=== PATIENT | female | born 1980 | race Caucasian/White ===

== ENCOUNTER → 2017-08-12 | Outpatient (CLI) | payer MEDICAID ==
[~2017-08-12] MED LIST: BUSPAR5 MG PO; CLEANSE PO; DEPO-PROVER150 MG/M1 IM; DETOX PO; FLAGYL500 MG PO; MED FOR DEPRESSION; NO HOME MEDICATIONS; NORCO 325 MG-51 TAB PO; PEN-VEE K500 MG PO; PENICILLIN V250 MG PO; PEPCID 20MG TAB20 MG PO; PERCOCET 5/321 UDTAB PO; PERCOCET 500 MG1 TAB PO; REMERON30 MG PO; ZITHROMAX 250M250 MG PO; [UNRECOGNIZED DRUG - OTHER] PO; iron supplement
== END ==
LOC: MC.RAD 14:00
DX: S29.9XXA Unspecified injury of thorax, initial encounter (principal); S20.02XA Contusion of left breast, initial encounter; N64.89 Other specified disorders of breast

== ENCOUNTER 2017-12-02 12:33 | Emergency (ER) | payer MEDICAID ==
[~2017-12-02] VITALS: Ht 157.5 cm; Wt 79.5 kg
[2017-12-02 12:36] VITALS: BP 144/93; PULSE 110; TEMP 98.2
[2017-12-04] MEDS ORDERED: SEPTRA DS 8001 TAB PO (04:51)
[2017-12-04] MEDS ORDERED: CEPHALEXIN500 M1 PO (04:51)
== END 2017-12-02 12:58 | disposition left against medical advice (07) ==
LOC: COL.ER 12:33
DX: S61.411A Laceration without foreign body of right hand, initial encounter (principal); X58.XXXA Exposure to other specified factors, initial encounter

== ENCOUNTER 2018-07-15 13:54 | Emergency (ER) | payer MEDICAID ==
[~2018-07-15] VITALS: Ht 157.5 cm; Wt 95.3 kg
[~2018-07-15 13:54] MED LIST changes: +CEPHALEXIN500 M1 PO; +SEPTRA DS 8001 TAB PO
[2018-07-15 14:02] VITALS: TEMP 98.3
[2018-07-15 14:41] LABS: BASO % 0.2 % (0.0-2.0); EOS # 0.1 (0.0-0.7); EOS % 0.5 % (0-4.0); GRAN # 8.7 (1.4-6.5); GRAN % 84.5 % (42.2-75.2); HEMOGLOBIN 11.4 g/dl (12.5-16.0); LYMPH # 0.9 (1.2-3.4); LYMPH % 8.5 % (20.0-51.0); MEAN CELL VOLUME 96 fl (80.0-100.0); MEAN CORPUSCULAR HEMOGLOBIN 32 pg (27.0-31.0); MEAN CORPUSCULAR HGB CONC 33 g/dl (33.0-37.0); MEAN PLATELET VOLUME 9.6 fl (7.4-10.4); MONO # 0.6 (0.1-0.6); MONO % 5.7 % (1.7-9.3); PLATELET COUNT 287 K/mm3 (130-400); RED BLOOD COUNT 3.57 M/mm3 (4.10-5.30); REDCELL DISTRIBUTION WIDTH-CV 13.5 % (11.5-14.5)
[2018-07-15 14:42] LABS: HEMATOCRIT 34.3 % (37.0-47.0)
[2018-07-15 14:47] LABS: BILIRUBIN,TOTAL 0.3 mg/dL (0.0-1.0); CREATININE, serum 0.47 mg/dL (0.52-1.25); POTASSIUM 3.7 mmol/L (3.4-5.0)
[2018-07-15 16:10] LABS: COLLECTION METHOD CLEAN CATCH
[2018-07-15 16:29] LABS: MUCOUS Present /lpf; PH 5 (5-8); URINE APPEARANCE Hazy; URINE BACTERIA Rare /hpf; URINE BILIRUBIN Negative (NEGATIVE); URINE BLOOD Negative (NEGATIVE); URINE COLOR Yellow; URINE GLUCOSE Negative (NEGATIVE); URINE KETONE 2+ (NEGATIVE); URINE LEUKOCYTE ESTERASE Negative (NEGATIVE); URINE NITRATE Negative (NEGATIVE); URINE PROTEIN(semi-quant) 2+ (NEGATIVE); URINE RBC 0-2 /hpf; URINE UROBILINOGEN Negative (NEGATIVE)
[2018-07-15 17:05] VITALS: BP 132/85; PULSE 84
== END 2018-07-15 17:06 | disposition home or self-care (01) ==
LOC: COL.ER 13:54
PROVIDERS: Emergency Medicine
DX: O21.9 Vomiting of pregnancy, unspecified (principal); O99.89 Other specified diseases and conditions complicating pregnancy, childbirth and the puerperium; R19.7 Diarrhea, unspecified; Z3A.38 38 weeks gestation of pregnancy
CPT/HCPCS: J2405; J2765; J7030

== ENCOUNTER 2018-08-13 12:16 | Outpatient (CLI) | payer MEDICAID ==
[2018-08-13] VITALS (8 sets, daily range): BP systolic 143–190; BP diastolic 70–102; PULSE 82–99; TEMP 98.5
[~2018-08-13] VITALS: Ht 157.5 cm; Wt 106.4 kg
[2018-08-13] MEDS ORDERED: PRENATAL MVI (12:36)
[2018-08-13 13:16] LABS: BASO % 0.2 % (0.0-2.0); EOS # 0.2 (0.0-0.7); EOS % 1.6 % (0-4.0); GRAN # 6.9 (1.4-6.5); GRAN % 73.2 % (42.2-75.2); LYMPH # 1.5 (1.2-3.4); LYMPH % 15.8 % (20.0-51.0); MEAN CELL VOLUME 94 fl (80.0-100.0); MEAN CORPUSCULAR HGB CONC 34 g/dl (33.0-37.0); MEAN PLATELET VOLUME 9.9 fl (7.4-10.4); MONO # 0.8 (0.1-0.6); MONO % 8.7 % (1.7-9.3); PLATELET COUNT 285 K/mm3 (130-400); RED BLOOD COUNT 2.92 M/mm3 (4.10-5.30); REDCELL DISTRIBUTION WIDTH-CV 13.8 % (11.5-14.5)
[2018-08-13 13:18] LABS: HEMATOCRIT 27.4 % (37.0-47.0); HEMOGLOBIN 9.2 g/dl (12.5-16.0); MEAN CORPUSCULAR HEMOGLOBIN 32 pg (27.0-31.0)
[2018-08-13 13:24] LABS: ALBUMIN 2.6 gm/dL (3.5-5.0); BILIRUBIN,TOTAL 0.1 mg/dL (0.0-1.0); CALCIUM 7.6 mg/dL (8.4-10.2); CREATININE, serum 0.5 mg/dL (0.52-1.25); POTASSIUM 3.8 mmol/L (3.4-5.0); TOTAL PROTEIN 5.3 gm/dL (6.4-8.2)
[2018-08-13 13:28] LABS: COLLECTION METHOD CLEAN CATCH
[2018-08-13 13:42] LABS: MUCOUS Present /lpf; PH 5 (5-8); SQUAMOUS EPITHELIAL 20-50 /hpf; URINE APPEARANCE Cloudy; URINE BACTERIA Rare /hpf; URINE BILIRUBIN Negative (NEGATIVE); URINE BLOOD Negative (NEGATIVE); URINE COLOR Yellow; URINE GLUCOSE Negative (NEGATIVE); URINE KETONE Negative (NEGATIVE); URINE LEUKOCYTE ESTERASE Negative (NEGATIVE); URINE NITRATE Negative (NEGATIVE); URINE PROTEIN(semi-quant) 1+ (NEGATIVE); URINE RBC 0-2 /hpf; URINE UROBILINOGEN Negative (NEGATIVE)
[2018-08-13 13:49] LABS: TRICYCLIC ANTIDEPRESS URINE NEGATIVE
== END 2018-08-13 16:35 | disposition home or self-care (01) ==
LOC: LDRO 12:16
PROVIDERS: Obstetrics & Gynecology
DX: O62.9 Abnormality of forces of labor, unspecified (principal); O99.89 Other specified diseases and conditions complicating pregnancy, childbirth and the puerperium; R03.0 Elevated blood-pressure reading, without diagnosis of hypertension; Z3A.36 36 weeks gestation of pregnancy

== ENCOUNTER 2018-08-16 07:25 | Inpatient (IN) | payer MEDICAID ==
[~2018-08-16] VITALS: Ht 160 cm; Wt 106.4 kg
[~2018-08-16 07:25] MED LIST changes: +PRENATAL MVI
[2018-08-17] VITALS (65 sets, daily range): BP systolic 114–192; BP diastolic 58–121; PULSE 71–98; TEMP 97.4–98.5
[2018-08-17] MEDS ORDERED: NORMODYNE200 MG PO (07:35)
[2018-08-17 07:46] LABS: BASO % 0.4 % (0.0-2.0); EOS # 0.2 (0.0-0.7); EOS % 3.2 % (0-4.0); GRAN # 4.7 (1.4-6.5); GRAN % 62.8 % (42.2-75.2); LYMPH # 1.7 (1.2-3.4); LYMPH % 21.9 % (20.0-51.0); MEAN CELL VOLUME 94 fl (80.0-100.0); MEAN CORPUSCULAR HGB CONC 32 g/dl (33.0-37.0); MEAN PLATELET VOLUME 10.1 fl (7.4-10.4); MONO # 0.9 (0.1-0.6); MONO % 11.3 % (1.7-9.3); PLATELET COUNT 281 K/mm3 (130-400); RED BLOOD COUNT 3.18 M/mm3 (4.10-5.30); REDCELL DISTRIBUTION WIDTH-CV 14.1 % (11.5-14.5)
[2018-08-17 07:52] LABS: HEMOGLOBIN 9.7 g/dl (12.5-16.0); MEAN CORPUSCULAR HEMOGLOBIN 31 pg (27.0-31.0)
[2018-08-17 07:55] LABS: TRICYCLIC ANTIDEPRESS URINE NEGATIVE
[2018-08-17 07:58] LABS: ALBUMIN 2.4 gm/dL (3.5-5.0); BILIRUBIN,TOTAL 0.2 mg/dL (0.0-1.0); CALCIUM 7.6 mg/dL (8.4-10.2); CREATININE, serum 0.49 mg/dL (0.52-1.25); POTASSIUM 3.5 mmol/L (3.4-5.0); TOTAL PROTEIN 5.1 gm/dL (6.4-8.2)
[2018-08-18] VITALS (35 sets, daily range): BP systolic 115–164; BP diastolic 55–97; PULSE 75–110; TEMP 97.5–98.3
[2018-08-18 08:07] LABS: BASO % 0.2 % (0.0-2.0); EOS % 0.1 % (0-4.0); GRAN # 16.6 (1.4-6.5); GRAN % 88.3 % (42.2-75.2); LYMPH # 0.8 (1.2-3.4); MEAN CELL VOLUME 94 fl (80.0-100.0); MEAN CORPUSCULAR HGB CONC 33 g/dl (33.0-37.0); MEAN PLATELET VOLUME 9.7 fl (7.4-10.4); MONO # 1.3 (0.1-0.6); PLATELET COUNT 270 K/mm3 (130-400); RED BLOOD COUNT 3.02 M/mm3 (4.10-5.30); REDCELL DISTRIBUTION WIDTH-CV 14.4 % (11.5-14.5)
[2018-08-18 08:10] LABS: HEMATOCRIT 28.5 % (37.0-47.0); HEMOGLOBIN 9.3 g/dl (12.5-16.0); MEAN CORPUSCULAR HEMOGLOBIN 31 pg (27.0-31.0)
[2018-08-18 08:19] LABS: ALBUMIN 2.5 gm/dL (3.5-5.0); BILIRUBIN,TOTAL 0.3 mg/dL (0.0-1.0); CALCIUM 6.9 mg/dL (8.4-10.2); CREATININE, serum 0.63 mg/dL (0.52-1.25); TOTAL PROTEIN 5.2 gm/dL (6.4-8.2)
[2018-08-18 08:21] LABS: MAGNESIUM 5.6 mg/dL (1.6-2.3)
[2018-08-19] VITALS (7 sets, daily range): BP systolic 135–174; BP diastolic 70–82; PULSE 68–86; TEMP 97.5–99.1
[2018-08-19 07:54] LABS: ALBUMIN 2.4 gm/dL (3.5-5.0); BILIRUBIN,TOTAL 0.1 mg/dL (0.0-1.0); CALCIUM 7.3 mg/dL (8.4-10.2); CREATININE, serum 0.66 mg/dL (0.52-1.25); POTASSIUM 4.9 mmol/L (3.4-5.0)
[2018-08-19 08:13] LABS: BASO % 0.3 % (0.0-2.0); EOS # 0.2 (0.0-0.7); EOS % 1.9 % (0-4.0); GRAN # 8.2 (1.4-6.5); GRAN % 73.3 % (42.2-75.2); HEMATOCRIT 25.1 % (37.0-47.0); HEMOGLOBIN 8.1 g/dl (12.5-16.0); LYMPH # 1.7 (1.2-3.4); LYMPH % 15.7 % (20.0-51.0); MEAN CELL VOLUME 97 fl (80.0-100.0); MEAN CORPUSCULAR HEMOGLOBIN 31 pg (27.0-31.0); MEAN CORPUSCULAR HGB CONC 32 g/dl (33.0-37.0); MEAN PLATELET VOLUME 10.3 fl (7.4-10.4); MONO # 0.9 (0.1-0.6); MONO % 8.4 % (1.7-9.3); PLATELET COUNT 268 K/mm3 (130-400); REDCELL DISTRIBUTION WIDTH-CV 14.7 % (11.5-14.5)
[2018-08-20 07:00] VITALS: BP 143/75; PULSE 79; TEMP 97.9
[2018-08-20] MEDS ORDERED: IBU600 MG PO (09:25)
== END 2018-08-20 10:58 | disposition home or self-care (01) | DRG 774 ==
LOC: LDR 07:25 → OB 08-18 18:05
PROVIDERS: Obstetrics & Gynecology
PROC: 10E0XZZ Delivery of Products of Conception, External Approach (ICD-10-PCS; principal; 2018-08-18)
PROC: 3E033VJ Introduction of Other Hormone into Peripheral Vein, Percutaneous Approach (ICD-10-PCS; 2018-08-18)
PROC: 10907ZC Drainage of Amniotic Fluid, Therapeutic from Products of Conception, Via Natural or Artificial Opening (ICD-10-PCS; 2018-08-18)
PROC: 10H07YZ Insertion of Other Device into Products of Conception, Via Natural or Artificial Opening (ICD-10-PCS; 2018-08-18)
PROC: 10J07ZZ Inspection of Products of Conception, Via Natural or Artificial Opening (ICD-10-PCS; 2018-08-18)
DX: O14.14 Severe pre-eclampsia complicating childbirth (principal); O72.1 Other immediate postpartum hemorrhage; Z3A.37 37 weeks gestation of pregnancy; Z37.0 Single live birth; O99.323 Drug use complicating pregnancy, third trimester; F13.10 Sedative, hypnotic or anxiolytic abuse, uncomplicated; O99.344 Other mental disorders complicating childbirth; F41.8 Other specified anxiety disorders; O99.334 Smoking (tobacco) complicating childbirth
CPT/HCPCS: J1200; J2405; J2590; J3475; J7120

== ENCOUNTER → 2018-08-31 | Outpatient (CLI) | payer MEDICAID ==
[~2018-08-31] MED LIST changes: +IBU600 MG PO; +NORMODYNE200 MG PO
[2018-08-31 16:38] LABS: BASO # 0.1 (0.0-0.2); BASO % 0.8 % (0.0-2.0); EOS # 0.3 (0.0-0.7); EOS % 3.6 % (0-4.0); GRAN # 6.1 (1.4-6.5); GRAN % 65.6 % (42.2-75.2); HEMATOCRIT 36.3 % (37.0-47.0); HEMOGLOBIN 11.5 g/dl (12.5-16.0); LYMPH # 2.2 (1.2-3.4); LYMPH % 23.2 % (20.0-51.0); MEAN CELL VOLUME 95 fl (80.0-100.0); MEAN CORPUSCULAR HEMOGLOBIN 30 pg (27.0-31.0); MEAN CORPUSCULAR HGB CONC 32 g/dl (33.0-37.0); MEAN PLATELET VOLUME 9.3 fl (7.4-10.4); MONO # 0.6 (0.1-0.6); MONO % 6.3 % (1.7-9.3); PLATELET COUNT 509 K/mm3 (130-400); RED BLOOD COUNT 3.81 M/mm3 (4.10-5.30); REDCELL DISTRIBUTION WIDTH-CV 13.8 % (11.5-14.5)
[2018-08-31 16:42] LABS: ALBUMIN 3.9 gm/dL (3.5-5.0); BILIRUBIN,TOTAL 0.2 mg/dL (0.0-1.0); CALCIUM 8.9 mg/dL (8.4-10.2); CREATININE, serum 0.6 mg/dL (0.52-1.25); POTASSIUM 4.2 mmol/L (3.4-5.0); TOTAL PROTEIN 7.2 gm/dL (6.4-8.2)
== END ==
LOC: COL.LAB 14:48
PROVIDERS: Family Medicine
DX: O14.10 Severe pre-eclampsia, unspecified trimester (principal); R51 Headache

== ENCOUNTER 2019-01-23 09:16 | Emergency (ER) | payer MEDICAID | END 2019-01-23 10:15 | disposition home or self-care (01) | LOC: COL.ER 09:16 | DX: K08.89 Other specified disorders of teeth and supporting structures (principal); F17.210 Nicotine dependence, cigarettes, uncomplicated ==

== ENCOUNTER → 2019-09-20 | Outpatient (CLI) | payer MEDICAID ==
[~2019-09-20] MED LIST changes: +AMOXICILLIN 8751 TAB PO
[2019-09-20 12:05] LABS: BASO # 0.1 (0.0-0.2); BASO % 0.7 % (0.0-2.0); EOS # 0.2 (0.0-0.7); EOS % 2.5 % (0-4.0); GRAN # 4.8 (1.4-6.5); GRAN % 63.2 % (42.2-75.2); HEMATOCRIT 43.8 % (37.0-47.0); HEMOGLOBIN 14.5 g/dl (12.5-16.0); LYMPH % 25.8 % (20.0-51.0); MEAN CELL VOLUME 95 fl (80.0-100.0); MEAN CORPUSCULAR HEMOGLOBIN 32 pg (27.0-31.0); MEAN CORPUSCULAR HGB CONC 33 g/dl (33.0-37.0); MEAN PLATELET VOLUME 9.8 fl (7.4-10.4); MONO # 0.6 (0.1-0.6); MONO % 7.5 % (1.7-9.3); PLATELET COUNT 361 K/mm3 (130-400); RED BLOOD COUNT 4.61 M/mm3 (4.10-5.30); REDCELL DISTRIBUTION WIDTH-CV 12.2 % (11.5-14.5)
[2019-09-20 12:15] LABS: ALANINE AMINOTRANSFERASE 20 U/L (9-52); ALBUMIN 4.2 gm/dL (3.5-5.0); ALKALINE PHOSPHATASE 48 U/L (50-136); ANION GAP 8 mmol/L (7-16); AST,SGOT 24 U/L (15-37); BILIRUBIN,TOTAL 0.3 mg/dL (0.0-1.0); BLOOD UREA NITROGEN 12 mg/dL (7-17); CALCIUM 9.1 mg/dL (8.4-10.2); CARBON DIOXIDE 27 mmol/L (22-30); CHLORIDE 104 mmol/L (98-107); CREATININE, serum 0.71 (0.52-1.25); GLUCOSE 97 mg/dL (74-106); POTASSIUM 3.9 mmol/L (3.4-5.0); SODIUM 138 mmol/L (137-145); TOTAL PROTEIN 7.2 gm/dL (6.4-8.2)
[2019-09-20 12:20] LABS: C-REACTIVE PROTEIN < 0.5 mg/dL (0.0-0.9)
[2019-09-20 12:24] LABS: ERYTHROCYTE SEDIMENTATION RATE 4 mm/hr (0-20)
== END ==
LOC: COL.LAB 11:27
PROVIDERS: Family Medicine
DX: H20.9 Unspecified iridocyclitis (principal)

== ENCOUNTER → 2019-11-09 | Outpatient (CLI) | payer MEDICAID ==
[2019-11-09 16:46] LABS: BASO # 0.1 (0.0-0.2); BASO % 0.5 % (0.0-2.0); EOS # 0.1 (0.0-0.7); EOS % 0.9 % (0-4.0); GRAN # 7.7 (1.4-6.5); GRAN % 69.1 % (42.2-75.2); HEMATOCRIT 41.2 % (37.0-47.0); LYMPH # 2.7 (1.2-3.4); LYMPH % 23.6 % (20.0-51.0); MEAN CELL VOLUME 95 fl (80.0-100.0); MEAN CORPUSCULAR HEMOGLOBIN 32 pg (27.0-31.0); MEAN CORPUSCULAR HGB CONC 34 g/dl (33.0-37.0); MEAN PLATELET VOLUME 9.6 fl (7.4-10.4); MONO # 0.6 (0.1-0.6); MONO % 5.5 % (1.7-9.3); PLATELET COUNT 341 K/mm3 (130-400); RED BLOOD COUNT 4.34 M/mm3 (4.10-5.30); REDCELL DISTRIBUTION WIDTH-CV 12.1 % (11.5-14.5)
== END ==
LOC: COL.LAB 16:02
PROVIDERS: Family Medicine
DX: T14.8XXA Other injury of unspecified body region, initial encounter (principal); R51 Headache

== ENCOUNTER 2019-12-10 14:22 | Emergency (ER) | payer MEDICAID ==
[~2019-12-10] VITALS: Ht 157.5 cm; Wt 85.9 kg
[2019-12-10 14:29] VITALS: BP 127/85; TEMP 97.8
[2019-12-10] MEDS ORDERED: PHENTERMINE15 MG PO (14:29)
[2019-12-10 15:50] VITALS: PULSE 82
== END 2019-12-10 15:52 | disposition home or self-care (01) ==
LOC: COL.ER 14:22
DX: R07.89 Other chest pain (principal); F32.9 Major depressive disorder, single episode, unspecified; F41.9 Anxiety disorder, unspecified; F17.210 Nicotine dependence, cigarettes, uncomplicated; Z90.89 Acquired absence of other organs; Z90.49 Acquired absence of other specified parts of digestive tract

== ENCOUNTER 2021-05-20 15:35 | Emergency (ER) | payer MEDICAID ==
[~2021-05-20] VITALS: Ht 162.6 cm; Wt 75.0 kg
[~2021-05-20 15:35] MED LIST changes: +PHENTERMINE15 MG PO
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
[2021-05-20 16:00] LABS: BASO # 0.1 (0.0-0.2); BASO % 0.5 % (0.0-2.0); EOS # 0.2 (0.0-0.7); EOS % 1.6 % (0-4.0); GRAN % 61.5 % (42.2-75.2); HEMATOCRIT 41.2 % (37.0-47.0); HEMOGLOBIN 13.3 g/dl (12.5-16.0); LYMPH # 4.4 (1.2-3.4); LYMPH % 29.9 % (20.0-51.0); MEAN CELL VOLUME 102 fl (80.0-100.0); MEAN CORPUSCULAR HEMOGLOBIN 33 pg (27.0-31.0); MEAN CORPUSCULAR HGB CONC 32 g/dl (33.0-37.0); MONO # 0.9 (0.1-0.6); PLATELET COUNT 322 K/mm3 (130-400); RED BLOOD COUNT 4.04 M/mm3 (4.10-5.30); REDCELL DISTRIBUTION WIDTH-CV 11.6 % (11.5-14.5)
[2021-05-20 16:03] LABS: INR 1.1 (0.8-3.0); PROTHROMBIN TIME 11.8 SECONDS (9.7-12.8)
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
[2021-05-20 16:14] LABS: LIPASE 196 U/L (23-300)
[2021-05-20 16:15] LABS: ALANINE AMINOTRANSFERASE 12 U/L (4-34); ALBUMIN 2.9 gm/dL (3.5-5.0); ALKALINE PHOSPHATASE 34 U/L (50-136); ANION GAP 8 mmol/L (7-16); AST,SGOT 25 U/L (15-37); BILIRUBIN,TOTAL 0.1 mg/dL (0.0-1.0); BLOOD UREA NITROGEN 12 mg/dL (7-17); C-REACTIVE PROTEIN < 0.5 mg/dL (0.0-0.9); CALCIUM 7.6 mg/dL (8.4-10.2); CARBON DIOXIDE 20 mmol/L (22-30); CHLORIDE 111 mmol/L (98-107); CREATININE, serum 0.65 (0.52-1.25); GLUCOSE 167 mg/dL (74-106); POTASSIUM 3.7 mmol/L (3.4-5.0); SODIUM 139 mmol/L (137-145); TOTAL PROTEIN 5.3 gm/dL (6.4-8.2)
[2021-05-20 16:20] LABS: COLLECTION METHOD IN
[2021-05-20 16:27] LABS: MUCOUS Present /lpf; PH 5 (5-8); SQUAMOUS EPITHELIAL 0-2 /hpf; URINE APPEARANCE Hazy; URINE BACTERIA None Seen /hpf; URINE BILIRUBIN Negative (NEGATIVE); URINE BLOOD Negative (NEGATIVE); URINE COLOR Yellow; URINE GLUCOSE Negative (NEGATIVE); URINE KETONE Negative (NEGATIVE); URINE LEUKOCYTE ESTERASE Negative (NEGATIVE); URINE NITRATE Negative (NEGATIVE); URINE PROTEIN(semi-quant) 1+ (NEGATIVE); URINE RBC 0-2 /hpf; URINE UROBILINOGEN Negative (NEGATIVE)
[2021-05-20 16:28] LABS: TROPONIN-I < 0.012 ng/mL (0.000-0.035)
[2021-05-20 16:30] VITALS: BP 129/80; PULSE 99
== END 2021-05-20 16:55 | disposition short-term general hospital (02) ==
LOC: COL.ER 15:35
PROVIDERS: Emergency Medicine
DX: S81.832A Puncture wound without foreign body, left lower leg, initial encounter (principal); S31.135A Puncture wound of abdominal wall without foreign body, periumbilic region without penetration into peritoneal cavity, initial encounter; R57.1 Hypovolemic shock; W34.00XA Accidental discharge from unspecified firearms or gun, initial encounter
CPT/HCPCS: J0330; J2250; J2704; P9016

== ENCOUNTER 2021-06-09 10:45 | Emergency (ER) | payer MEDICAID ==
[~2021-06-09] VITALS: Ht 157.5 cm; Wt 77.3 kg
[2021-06-09 11:09] VITALS: TEMP 98
[2021-06-09 11:46] LABS: BASO # 0.1 (0.0-0.2); BASO % 0.8 % (0.0-2.0); EOS # 0.4 (0.0-0.7); EOS % 4.9 % (0-4.0); GRAN # 5.2 (1.4-6.5); GRAN % 58.7 % (42.2-75.2); HEMOGLOBIN 12.3 g/dl (12.5-16.0); LYMPH # 2.3 (1.2-3.4); MEAN CELL VOLUME 98 fl (80.0-100.0); MEAN CORPUSCULAR HEMOGLOBIN 33 pg (27.0-31.0); MEAN CORPUSCULAR HGB CONC 34 g/dl (33.0-37.0); MEAN PLATELET VOLUME 8.8 fl (7.4-10.4); MONO # 0.8 (0.1-0.6); MONO % 9.3 % (1.7-9.3); PLATELET COUNT 688 K/mm3 (130-400); RED BLOOD COUNT 3.73 M/mm3 (4.10-5.30)
[2021-06-09 11:47] LABS: HEMATOCRIT 36.7 % (37.0-47.0)
[2021-06-09 11:52] LABS: ALBUMIN 3.7 gm/dL (3.5-5.0); BILIRUBIN,TOTAL 0.5 mg/dL (0.0-1.0); C-REACTIVE PROTEIN 1.2 mg/dL (0.0-0.9); CALCIUM 9.1 mg/dL (8.4-10.2); CREATININE, serum 0.66 (0.52-1.25); POTASSIUM 3.3 mmol/L (3.4-5.0); TOTAL PROTEIN 7.4 gm/dL (6.4-8.2)
[2021-06-09] MEDS ORDERED: CEPHALEXIN500 M1 PO (13:39)
[2021-06-09] MEDS ORDERED: NORCO 325 MG-51 TAB PO (13:39)
[2021-06-09 13:48] VITALS: BP 115/85; PULSE 95
== END 2021-06-09 13:48 | disposition home or self-care (01) ==
LOC: COL.ER 10:45
PROVIDERS: Nurse Practitioner
DX: L03.311 Cellulitis of abdominal wall (principal); F17.200 Nicotine dependence, unspecified, uncomplicated
CPT/HCPCS: J1170; J7030; Q9967

== ENCOUNTER 2021-09-15 15:39 | Observation (INO) | payer MEDICAID ==
[~2021-09-15] VITALS: Ht 157.5 cm; Wt 80.2 kg
[2021-09-15 16:35] LABS: BASO # 0.1 K/mm3 (0.0-0.2); BASO % 0.4 % (0.0-2.0); EOS # 0.1 K/mm3 (0.0-0.7); EOS % 0.8 % (0-4.0); GRAN # 9.5 K/mm3 (1.4-6.5); GRAN % 81.6 % (42.2-75.2); HEMATOCRIT 43.4 % (37.0-47.0); HEMOGLOBIN 14.3 g/dl (12.5-16.0); LYMPH # 1.3 K/mm3 (1.2-3.4); LYMPH % 10.9 % (20.0-51.0); MEAN CELL VOLUME 90 fl (80.0-100.0); MEAN CORPUSCULAR HEMOGLOBIN 30 pg (27.0-31.0); MEAN CORPUSCULAR HGB CONC 33 g/dl (33.0-37.0); MONO # 0.7 K/mm3 (0.1-0.6); MONO % 5.9 % (1.7-9.3); PLATELET COUNT 422 K/mm3 (130-400); RED BLOOD COUNT 4.85 M/mm3 (4.10-5.30); REDCELL DISTRIBUTION WIDTH-CV 13.1 % (11.5-14.5)
[2021-09-15 16:36] LABS: COLLECTION METHOD CLEAN CATCH
[2021-09-15 16:53] LABS: MUCOUS Present /lpf; PH 7 (5-8); SQUAMOUS EPITHELIAL 0-2 /hpf; URINE APPEARANCE Clear; URINE BACTERIA None Seen /hpf; URINE BILIRUBIN Negative (NEGATIVE); URINE BLOOD Negative (NEGATIVE); URINE COLOR Yellow; URINE GLUCOSE Negative (NEGATIVE); URINE KETONE 1+ (NEGATIVE); URINE LEUKOCYTE ESTERASE Negative (NEGATIVE); URINE NITRATE Negative (NEGATIVE); URINE PROTEIN(semi-quant) Negative (NEGATIVE); URINE RBC 0-2 /hpf; URINE UROBILINOGEN Negative (NEGATIVE)
[2021-09-15 16:56] LABS: ALANINE AMINOTRANSFERASE 19 U/L (0-55); ALBUMIN 3.8 gm/dL (3.5-5.0); ALKALINE PHOSPHATASE 63 U/L (40-150); ANION GAP 11 mmol/L (7-16); AST,SGOT 21 U/L (5-34); BILIRUBIN,TOTAL 0.6 mg/dL (0.2-1.2); BLOOD UREA NITROGEN 10 mg/dL (7-19); CALCIUM 9.3 mg/dL (8.4-10.2); CARBON DIOXIDE 25 mmol/L (22-29); CHLORIDE 101 mmol/L (98-107); CREATININE, serum 0.79 mg/dL (0.57-1.11); GLUCOSE 105 mg/dL (70-99); LIPASE < 10 U/L (8-78); SODIUM 137 mmol/L (136-145); TOTAL PROTEIN 7.2 gm/dL (6.2-8.1)
[2021-09-15 21:59] VITALS: BP 128/84; PULSE 88; TEMP 98.6
--- NOTE | 2021-09-15 23:00 | NUR ---
PATIENT IS ALERT AND ORIENTED X3 BUT VERY GROGGY. PATIENT IS FALLING ASLEEP OFF AND ON WHILE DOING ASSESSMENT. PATIENT HAS IV TO RIGHT AC. PATIENT IS ON CLEAR LIQUID DIET. PATIENT DENIES PAIN OR FURTHER NEEDS AT THIS TIME. CALL LIGHT WITHIN REACH. ALL ASSESSMENT INFOMATION COMPLETED.
--- NOTE | 2021-09-15 23:21 | NUR ---
PATIENT IS SLEEPING COMFORTABLY AND HAS SCD'S ON BILATERAL LOWER EXTREMITIES.
[2021-09-15 23:59] VITALS: BP 136/88; PULSE 77; TEMP 97.9
--- NOTE | 2021-09-16 01:30 | NUR ---
PATIENT VOMITED. YELLOW IN COLOR. ZOFRAN GIVEN PER ORDERS.
--- NOTE | 2021-09-16 01:57 | NUR ---
PATIENT VOMITED AGAIN. YELLOWISH BROWN IN COLOR
--- NOTE | 2021-09-16 03:05 | NUR ---
PATIENT VOMITED AGAIN. YELLOW IN COLOR. PHENEGRAN GIVEN PER ORDERS. SIP OF WATER AND WET WASHRAG PROVIDED.
[2021-09-16 04:12] VITALS: BP 159/87; PULSE 74; TEMP 98.5
--- NOTE | 2021-09-16 05:18 | NUR ---
PATIENT VOMITED AGAIN. MOUTH WIPED OFF AND WATER PROVIDED
--- NOTE | 2021-09-16 06:12 | NUR ---
PATIENT VOMITED OFF AND ON THROUGHOUT NIGHT AND SLEPT OFF AND ON. MEDS GIVEN PER ORDERS. NO FURTHER NEEDS AT THIS TIME. WILL REPORT TO DAYSHIFT.
[2021-09-16 06:47] LABS: BASO % 0.4 % (0.0-2.0); EOS # 0.1 K/mm3 (0.0-0.7); EOS % 0.9 % (0-4.0); GRAN # 8.4 K/mm3 (1.4-6.5); GRAN % 78.7 % (42.2-75.2); HEMATOCRIT 40.8 % (37.0-47.0); LYMPH # 1.3 K/mm3 (1.2-3.4); LYMPH % 12.3 % (20.0-51.0); MEAN CELL VOLUME 91 fl (80.0-100.0); MEAN CORPUSCULAR HEMOGLOBIN 29 pg (27.0-31.0); MEAN CORPUSCULAR HGB CONC 32 g/dl (33.0-37.0); MEAN PLATELET VOLUME 9.2 fl (7.4-10.4); MONO # 0.8 K/mm3 (0.1-0.6); MONO % 7.3 % (1.7-9.3); PLATELET COUNT 374 K/mm3 (130-400); RED BLOOD COUNT 4.48 M/mm3 (4.10-5.30); REDCELL DISTRIBUTION WIDTH-CV 13.2 % (11.5-14.5)
[2021-09-16 07:06] LABS: CALCIUM 8.6 mg/dL (8.4-10.2); CREATININE, serum 0.68 mg/dL (0.57-1.11); POTASSIUM 4.2 mmol/L (3.5-4.5)
[2021-09-16 07:41] VITALS: BP 164/81; PULSE 75; TEMP 98.6
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
[2021-09-16 11:39] VITALS: BP 152/82; PULSE 67; TEMP 98.2
--- NOTE | 2021-09-16 12:10 | NUR ---
Voicemail left for Dr Nuñez for consult by this nurse.
--- NOTE | 2021-09-16 12:53 | NUR ---
Patient has remained arousable to name throughout the morning, doses off after a few seconds of conversation. Requests nausea medication when awakens. No c/o at this time.
--- NOTE | 2021-09-16 13:38 | NUR ---
Patient requests nausea medications, patient sleeping upon entry into room, but arouses to name, asks for nausea medication and immediately falls back to sleep. Patient awakens abruptly and asks why we keep giving her pills if she just keeps throwing them up. Reviewed with patient that she has no oral medications on her MAR, and that this nurse has not given her any pills. Patient states "well, someone is giving them to me." Emesis basin at bedside reveal green bile like emesis with several small white pills noted in emesis. Bathroom door was open upon entry into room, urine for drug screen needs to be collected, urine collection hat noted to be on floor, this nurse has put it in toilet x2 today. Reviewed with patient that urine needs to be collected and to please leave hat in toilet. Patient states "you don't need to check my urine, just leave it alone." Reviewed with patient need to collect urine. Patient turns back to staff and will no longer communicate.
[2021-09-16 16:00] VITALS: BP 136/86; PULSE 88; TEMP 98.2
[2021-09-16 18:00] LABS: TRICYCLIC ANTIDEPRESS URINE NEGATIVE
[2021-09-16 19:46] VITALS: BP 135/81; PULSE 85; TEMP 98.2
--- NOTE | 2021-09-16 20:54 | NUR ---
PATIENT IS ALERT AND ORIENTED BUT DROWSY. FALLING IN AND OUT OF SLEEP, LAYING IN BED. PATIENT HAS EGD SCHEDULED IN AM. TO BE NPO AT MIDNIGHT. PATIENT HAS IV TO RIGHT AC. PATIENT DENIES NAUSEA/VOMITING AT THIS TIME. PATIENT IS ON CLEAR LIQUID DIET. PATIENT DENIES FURTHER NEEDS AT THIS TIME. SCD'S ON BILATERAL LOWER EXTREMITIES. CALL LIGHT WITHIN REACH. HEAD TO TOE ASSESSMENT COMPLETE.
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
[2021-09-16 23:40] VITALS: BP 140/66; PULSE 89; TEMP 98.7
[2021-09-17] VITALS (7 sets, daily range): BP systolic 118–128; BP diastolic 68–84; PULSE 78–87; TEMP 98.1–98.5
--- NOTE | 2021-09-17 05:40 | NUR ---
CONSENT SIGNED BY PATIENT, PUT ON FRONT OF CHART
--- NOTE | 2021-09-17 05:52 | NUR ---
PATIENT DID WELL THROUGHOUT NIGHT. SLEPT THROUGH MOST OF NIGHT. SIGNED CONSENT FOR EGD AT 8AM. PATIENT DENIES PAIN OR NAUSA/VOMITING. NO FURTHER NEEDS AT THIS TIME. CALL LIGHT WITHIN REACH. WILL REPORT TO DAYSHIFT.
[2021-09-17 06:48] LABS: HEMATOCRIT 37.7 % (37.0-47.0); HEMOGLOBIN 12.2 g/dl (12.5-16.0); MEAN CELL VOLUME 90 fl (80.0-100.0); MEAN CORPUSCULAR HEMOGLOBIN 29 pg (27.0-31.0); MEAN CORPUSCULAR HGB CONC 32 g/dl (33.0-37.0); MEAN PLATELET VOLUME 9.2 fl (7.4-10.4); PLATELET COUNT 351 K/mm3 (130-400); RED BLOOD COUNT 4.21 M/mm3 (4.10-5.30); REDCELL DISTRIBUTION WIDTH-CV 13.2 % (11.5-14.5)
[2021-09-17 07:16] LABS: CALCIUM 8.3 mg/dL (8.4-10.2); CREATININE, serum 0.71 mg/dL (0.57-1.11); POTASSIUM 3.6 mmol/L (3.5-4.5)
[2021-09-17] MEDS ORDERED: PROTONIX 40MG T40 MG PO (10:11)
[2021-09-17] MEDS ORDERED: ZOFRAN ODT4 MG PO (10:11)
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
--- NOTE | 2021-09-17 11:01 | NUR ---
Patient returned from EGD at 0850. Upon return to room, patient removed IV, refused restart for 0900 meds. Post op vital signs initiated.
--- NOTE | 2021-09-17 11:09 | NUR ---
Patient alert and oriented, answers questions with a lot of prompting. Asks to be left alone. No c/o n/v. No other c/o at this time.
--- NOTE | 2021-09-17 12:35 | NUR ---
Discharge instructions reviewed with patient, verbalized understanding. Discharged via wheelchair to auto/home with daughter at 1220.
== END 2021-09-17 12:20 | disposition home or self-care (01) ==
LOC: COL.ER 15:39 → SURG 19:05
PROVIDERS: Family Medicine; Physician Assistant; Student in an Organized Health Care Education/Training Program; ADMIT Student in an Organized Health Care Education/Training Program
DX: F50.2 Bulimia nervosa (principal); K44.9 Diaphragmatic hernia without obstruction or gangrene; K52.9 Noninfective gastroenteritis and colitis, unspecified; L03.311 Cellulitis of abdominal wall; D72.829 Elevated white blood cell count, unspecified; N76.0 Acute vaginitis; F17.210 Nicotine dependence, cigarettes, uncomplicated; F10.10 Alcohol abuse, uncomplicated; F19.10 Other psychoactive substance abuse, uncomplicated; Z90.89 Acquired absence of other organs; Z87.828 Personal history of other (healed) physical injury and trauma; Z20.822 Contact with and (suspected) exposure to COVID-19
CPT/HCPCS: 99233-AI; C9113; G0378; J2405; J2550; J2704; J7030; Q9967

== ENCOUNTER → 2021-10-17 | Outpatient (CLI) | payer MEDICAID ==
[~2021-10-17] MED LIST changes: +PROTONIX 40MG T40 MG PO; +ZOFRAN ODT4 MG PO
== END ==
LOC: COL.RAD 10:26
DX: R22.42 Localized swelling, mass and lump, left lower limb (principal)

== ENCOUNTER 2023-10-26 11:01 | Day surgery (SDC) | payer MEDICAID ==
[~2023-10-26] VITALS: Ht 157.5 cm; Wt 93.5 kg
[~2023-10-26 11:01] MED LIST changes: +BENTYL 10MG10 MG/CAP PO
[2023-10-26 12:19] LABS: TRICYCLIC ANTIDEPRESS URINE NEGATIVE
[2023-10-26 12:38] VITALS: BP 108/75; PULSE 72; TEMP 97.7
--- NOTE | 2023-10-26 12:48 | NUR ---
1141 PT AMBULATORY TO BAY 8 WITH A STEADT GAIT, BREATHING EVEN AND UNLABORED. PT IS ALERT AND ORIENTED. CONSENTS REVIEWED AND SIGNED BY PT. IV ESTABLISHED. LR INFUSING VIA GRAVITY AT [facility]. CALL LIGHT IN REACH. WARM BLANKET PROVIDED.
[2023-10-26] MEDS ORDERED: NORCO 325 MG-51 TAB PO (13:04)
[2023-10-26 16:45] VITALS: BP 106/67; PULSE 72; TEMP 97.1
[2023-10-26 17:00] VITALS: BP 100/67; PULSE 80
[2023-10-26 17:15] VITALS: BP 100/61; PULSE 74
[2023-10-26 17:30] VITALS: BP 109/70; PULSE 82
--- NOTE | 2023-10-26 17:50 | NUR ---
1645 RETURNS TO ROOM 8 PER CART. AWAKE, ALERT. RESP UNLABORED. HOB ELEVATED 30 DEGREES. ABD OBESE, SOFT. ABD BINDER IN PLACE, LOOSENED, TROCHAR SITES OBSERVED, NO DRAINAGE OR REDNESS OBSERVED. BINDER RESECURED. PATIENT EXPRESSES PRESENCE OF CONTINUED MODERATE ABD DISCOMFORT. MOVES, COUGHS, DEEP BREATHES WELL WITH ENCOURAGEMENT. VITALSIGNS OBTAINED. CALL LIGHT AT SIDE 1658 TOLERATES PO WATER, SALTINES AND ICECREAM WITHOUT NAUSEA PO PAIN PILL GIVE 1705 DISCHARGE INSTRUCTIONS REVIEWED. PATIENT VERBALIZES UNDERSTANDING. COPY PROVIDED IN DISCHARGE FOLDER 1720 PATIENT REPORTS INCREASING COMFORT. PAIN RATED 4/10. DESCRIBES TOLERABLE 1740 SITS ON EDGE OF CART WITH MINIMAL ASSIST. MOVES QUITE WELL. DRESSES SELF. ABD BINDER SECURE IN PLACE
[2023-10-26 18:26] VITALS: BP 97/59; PULSE 71; TEMP 97.6
== END 2023-10-26 17:50 | disposition home or self-care (01) ==
LOC: SDCO 11:01
PROVIDERS: Surgery
DX: K43.2 Incisional hernia without obstruction or gangrene (principal); F17.210 Nicotine dependence, cigarettes, uncomplicated; W34.00XS Accidental discharge from unspecified firearms or gun, sequela
CPT/HCPCS: A4314; C1781; J0690; J1100; J1170; J1200; J1885; J2175; J2405; J2704; J3010; J7120

== ENCOUNTER 2023-11-07 01:43 | Emergency (ER) | payer MEDICAID ==
[~2023-11-07] VITALS: Ht 157.5 cm; Wt 86.4 kg
[2023-11-07 01:53] VITALS: TEMP 97.8
[2023-11-07 02:47] LABS: BASO # 0.1 K/mm3 (0.0-0.2); BASO % 1.1 % (0.0-2.0); EOS # 0.4 K/mm3 (0.0-0.7); EOS % 4.4 % (0.0-4.0); GRAN % 49.3 % (42.2-75.2); HEMATOCRIT 37.9 % (37.0-47.0); LYMPH # 2.8 K/mm3 (1.2-3.4); LYMPH % 34.8 % (20.0-51.0); MEAN CELL VOLUME 94 fl (80.0-100.0); MEAN CORPUSCULAR HEMOGLOBIN 32 pg (27-31); MEAN CORPUSCULAR HGB CONC 34 g/dl (33.0-37.0); MEAN PLATELET VOLUME 9.2 fl (7.4-10.4); MONO # 0.8 K/mm3 (0.1-0.6); MONO % 10.2 % (1.7-9.3); PLATELET COUNT 377 K/mm3 (130-400); RED BLOOD COUNT 4.02 M/mm3 (4.10-5.30); REDCELL DISTRIBUTION WIDTH-CV 11.9 % (11.5-14.5)
[2023-11-07 02:55] LABS: INR 1.1 (0.8-3.0); PROTHROMBIN TIME 12.1 SECONDS (9.7-12.8)
[2023-11-07 02:56] LABS: COLLECTION METHOD CLEAN CATCH
[2023-11-07 02:57] LABS: PARTIAL THROMBOPLASTIN TIME 34.8 SECONDS (26.0-37.0)
[2023-11-07 03:07] LABS: ALBUMIN 3.6 gm/dL (3.5-5.0); BILIRUBIN,TOTAL 0.5 mg/dL (0.2-1.2); CALCIUM 9.1 mg/dL (8.4-10.2); CREATININE, serum 0.73 mg/dL (0.57-1.11); POTASSIUM 3.4 mmol/L (3.5-4.5); TOTAL PROTEIN 6.9 gm/dL (6.2-8.1)
[2023-11-07 03:08] LABS: PH 5.5 (5.0-8.5); URINE APPEARANCE Cloudy (CLEAR/HAZY); URINE BLOOD Negative (NEGATIVE); URINE COLOR Yellow (YELLOW); URINE GLUCOSE Negative (NEGATIVE); URINE KETONE TRACE (NEGATIVE); URINE NITRATE Negative (NEGATIVE); URINE PROTEIN(semi-quant) 1+ (NEGATIVE); URINE UROBILINOGEN 0.2 E.U/dL (0.2-1.0)
[2023-11-07 03:14] LABS: SQUAMOUS EPITHELIAL 20-50 /hpf (0-10); URINE RBC None Seen /hpf (0-2)
[2023-11-07 03:15] LABS: MUCOUS Present (NOT PRESENT); URINE BACTERIA Moderate /hpf (NONE SEEN)
[2023-11-07 03:47] LABS: TRICYCLIC ANTIDEPRESS URINE NEGATIVE
[2023-11-07 05:23] VITALS: BP 151/10; PULSE 75
== END 2023-11-07 05:23 | disposition home or self-care (01) ==
LOC: COL.ER 01:43
PROVIDERS: Emergency Medicine
DX: R10.12 Left upper quadrant pain (principal); R10.30 Lower abdominal pain, unspecified; F17.210 Nicotine dependence, cigarettes, uncomplicated
CPT/HCPCS: J0696; J2270; J2405; Q9967